=== PATIENT | male | born 1945 | race Caucasian/White ===

== ENCOUNTER → 2021-01-05 | Day surgery (SDC) | payer MEDICARE ==
[2021-01-02 08:32] LABS: BASOPHILS # (AUTO) 0.1 (0.0-0.1); BASOPHILS % 0.9 % (0.0-1.0); EOSINOPHILS # (AUTO) 0.4 (0.0-0.4); EOSINOPHILS % 6.4 % (0.0-6.0); HEMATOCRIT 46.1 % (38.2-49.6); HEMOGLOBIN 14.5 g/dL (14.0-18.0); LYMPHOCYTES % 33.9 % (18.0-39.1); MEAN CORPUSCULAR HEMOGLOBIN 29.9 pg (28-32); MEAN CORPUSCULAR HGB CONC 31.5 g/dL (31-35); MEAN CORPUSCULAR VOLUME 95.1 fL (81-99); MONOCYTES # (AUTO) 0.7 (0.2-0.8); MONOCYTES % 12.6 % (4.4-11.3); NEUTROPHILS # (AUTO) 2.7 (2.1-6.9); PLATELET COUNT 154 x10e3/uL (140-360); RED BLOOD COUNT 4.85 x10e6/uL (4.3-5.7)
[2021-01-02 08:58] LABS: INR 0.96
[2021-01-02 09:12] LABS: ALBUMIN 3.8 g/dL (3.5-5.0); ANION GAP 12.5 mmol/L (8-16); CALCIUM 9.3 mg/dL (8.4-10.2); CREATININE, SERUM 1.06 mg/dL (0.72-1.25); POTASSIUM 4.5 mmol/L (3.5-5.1)
[2021-01-05] VITALS (10 sets, daily range): BP systolic 131–173; BP diastolic 76–82
[~2021-01-05] VITALS: Ht 177.8 cm; Wt 91.6 kg
[~2021-01-05] MED LIST: ATORVASTATIN CA20 MG PO; FENTANYL CITRATE/PF 100MCG/2 ML INJ ONE; HEPARIN SOD (PORCINE) 1000 UNIT/ML 30ML ONE; HEPARIN SOD/SOD CHLORIDE 2,000 ML ONE; IOPAMIDOL 370 MG/ML 200 ML INFUS..BTL INJ ONE; LASIX40 MG PO; LIDOCAINE HCL 2% LOCAL 20 ML VIAL ONE; MELOXICAM15 MG PO; MIDAZOLAM HCL 2 MG/2 ML VIAL ONE; NAPROXEN250 MG PO; NEURONTIN300 MG PO; NITROGLYCERIN/D5W 200 MCG/ML 0 ML ONE; SODIUM CHLORIDE 0.9% 1000ML 1,000 ML ONE
== END | disposition home or self-care (01) ==
LOC: CATH LAB 07:02
PROVIDERS: ATTEND Internal Medicine Cardiovascular Disease
DX: I25.810 Atherosclerosis of coronary artery bypass graft(s) without angina pectoris (principal); R94.39 Abnormal result of other cardiovascular function study; I71.4 Abdominal aortic aneurysm, without rupture; I10 Essential (primary) hypertension; E78.5 Hyperlipidemia, unspecified; I73.9 Peripheral vascular disease, unspecified; I87.2 Venous insufficiency (chronic) (peripheral); Z88.2 Allergy status to sulfonamides; Z88.8 Allergy status to other drugs, medicaments and biological substances; Z01.812 Encounter for preprocedural laboratory examination; Z20.822 Contact with and (suspected) exposure to COVID-19; Z95.1 Presence of aortocoronary bypass graft
CPT/HCPCS: 36415; 75605; 75625; 80053; 85025; 85610; 93459; C1760; C1766; C1769 ×4; C1894; J2001; J2250; J3010; J7030; Q9967; U0002; 99152; 99153; J1644

== ENCOUNTER 2021-02-13 05:24 | Observation (INO) | payer MEDICARE ==
[2021-02-10 10:07] LABS: BASOPHILS # (AUTO) 0.1 (0.0-0.1); BASOPHILS % 0.9 % (0.0-1.0); EOSINOPHILS # (AUTO) 0.4 (0.0-0.4); EOSINOPHILS % 5.7 % (0.0-6.0); HEMOGLOBIN 13.5 g/dL (14.0-18.0); LYMPHOCYTES # (AUTO) 2.2 (1.0-3.2); LYMPHOCYTES % 34.6 % (18.0-39.1); MEAN CORPUSCULAR HEMOGLOBIN 30.1 pg (28-32); MEAN CORPUSCULAR HGB CONC 32.1 g/dL (31-35); MEAN CORPUSCULAR VOLUME 93.5 fL (81-99); MONOCYTES # (AUTO) 0.8 (0.2-0.8); MONOCYTES % 12.4 % (4.4-11.3); NEUTROPHILS % 46.1 % (38.7-80.0); PLATELET COUNT 182 x10e3/uL (140-360); RED BLOOD COUNT 4.49 x10e6/uL (4.3-5.7); RED CELL DISTRIBUTION WIDTH 13.3 % (11.7-14.4)
[2021-02-10 10:26] LABS: ANION GAP 13.2 mmol/L (8-16); CALCIUM 9.4 mg/dL (8.4-10.2); CREATININE, SERUM 0.97 mg/dL (0.72-1.25); POTASSIUM 4.2 mmol/L (3.5-5.1)
[~2021-02-13 05:24] MED LIST changes: +ASPIRIN81 MG PO; +CLOPIDOGREL75 MG PO; +CRESTOR10 MG PO; -FENTANYL CITRATE/PF 100MCG/2 ML INJ ONE; -HEPARIN SOD (PORCINE) 1000 UNIT/ML 30ML ONE; -HEPARIN SOD/SOD CHLORIDE 2,000 ML ONE; -IOPAMIDOL 370 MG/ML 200 ML INFUS..BTL INJ ONE; -LIDOCAINE HCL 2% LOCAL 20 ML VIAL ONE; -MIDAZOLAM HCL 2 MG/2 ML VIAL ONE; -NITROGLYCERIN/D5W 200 MCG/ML 0 ML ONE; -SODIUM CHLORIDE 0.9% 1000ML 1,000 ML ONE
[2021-02-13] MEDS ORDERED: Vancomycin IV 1,000 MG ONE (06:20)
[2021-02-13] MEDS ORDERED: TRANEXAMIC ACID 1,000 MG/10 ML ML ONE (06:20)
[2021-02-13] MEDS ORDERED: CELECOXIB 200 MG CAP ONE (06:38)
[2021-02-13] MEDS ORDERED: DEXAMETHASONE SOD PHOS 10 MG/1 ML VIAL ONE (06:38)
[2021-02-13] MEDS ORDERED: GABAPENTIN 300 MG CAP ONE (06:39)
[2021-02-13] MEDS ORDERED: SODIUM CHLORIDE 0.9% 50ML 100 ML ONE (06:39)
[2021-02-13] MEDS ORDERED: ROPIVACAINE 246.25 MG, EPINEPHRINE HCL 1:1000 1ML 0.5 MG, CLONIDINE HCL 0.08 MG, KETORO... INJ ONE ×5 (08:00)
[2021-02-13] MEDS ORDERED: ONDANSETRON HCL INJ 2MG/ML 2ML 2 MG/ML VIAL IV PRN (08:30)
[2021-02-13] MEDS ORDERED: HYDROCODONE/APAP 5MG-325MG TAB PO PRN (08:30)
[2021-02-13] MEDS ORDERED: DIPHENHYDRAMINE HCL INJ 50 MG/ML VIAL IV PRN (08:30)
[2021-02-13] MEDS ORDERED: DOCUSATE SODIUM 100 MG CAP PO PRN (08:30)
[2021-02-13] MEDS ORDERED: HYDROCODONE/APAP 7.5MG-325MG 1 EA TAB PO PRN (08:30)
[2021-02-13] MEDS ORDERED: KETOROLAC TROMETHAMINE 30 MG/ML VIAL IV PRN (08:30)
[2021-02-13] MEDS ORDERED: ACETAMINOPHEN 650 MG SUPP PR PRN (08:30)
[2021-02-13] MEDS ORDERED: SODIUM CHLORIDE 0.9% 1000ML 1,000 ML IV SCH (08:30)
[2021-02-13] MEDS ORDERED: MEPERIDINE HCL INJ 25 MG/ML VIAL ONE (08:49)
[2021-02-13] MEDS ORDERED: HYDROMORPHONE 1MG/1ML INJ ONE (09:23)
[2021-02-13 10:15] VITALS: BP 138/71
[2021-02-13] MEDS: CELECOXIB 100 MG CAP PO SCH ×2 (10:42→16:27)
[2021-02-13] MEDS: ASPIRIN 325 MG TAB PO SCH ×2 (10:42→16:27)
[2021-02-13 11:12] VITALS: BP 138/71
[2021-02-13 11:26] VITALS: BP 138/71
[2021-02-13 11:52] VITALS: BP 139/77
[2021-02-13] MEDS ORDERED: ACETAMINOPHEN 1000 MG/100 ML IV PRN (12:00)
[2021-02-13] MEDS ORDERED: LIDOCAINE HCL 2% LOCAL INJ 5 ML SDV VIAL INJ ONE (12:52)
[2021-02-13] MEDS ORDERED: KETOROLAC TROMETHAMINE 30 MG/ML VIAL ONE (12:52)
[2021-02-13] MEDS ORDERED: SEVOFLURANE INHAL SOLN 250 ML PEN BTL ONE (12:52)
[2021-02-13] MEDS ORDERED: POVIDONE IODINE 0.05% 0.05 % ML PO ONE (12:52)
[2021-02-13] MEDS ORDERED: EPHEDRINE SULFATE INJ 50 MG/ML VIAL ONE (12:52)
[2021-02-13] MEDS ORDERED: DEXAMETHASONE SOD PHOS INJ 4 MG/ML SDV ONE (12:52)
[2021-02-13] MEDS ORDERED: ONDANSETRON HCL INJ 2MG/ML 2ML 2 MG/ML VIAL ONE (12:52)
[2021-02-13] MEDS ORDERED: PROPOFOL IV EMULSION 10 MG/ML 20 ML VIAL ONE (12:52)
[2021-02-13] MEDS ORDERED: Cefazolin 1 GM in SODIUM CHLORIDE 0.9% 50ML 50 ML IV SCH (14:00)
[2021-02-13 16:04] VITALS: BP 139/70
[2021-02-13] MEDS ORDERED: ZOLPIDEM TARTRATE 5 MG TAB PO PRN (21:00)
== END 2021-02-13 18:17 | disposition home or self-care (01) ==
LOC: OR 05:24 → PACU V 08:34 → MED/SURG2 10:00
PROVIDERS: ADMIT Specialist; ATTEND Specialist
DX: M17.0 Bilateral primary osteoarthritis of knee (principal); Z20.822 Contact with and (suspected) exposure to COVID-19; I10 Essential (primary) hypertension; I25.10 Atherosclerotic heart disease of native coronary artery without angina pectoris; Z95.1 Presence of aortocoronary bypass graft; I73.9 Peripheral vascular disease, unspecified; I87.2 Venous insufficiency (chronic) (peripheral); R94.30 Abnormal result of cardiovascular function study, unspecified
CPT/HCPCS: 27447; 36415; 71046; 73560; 80048; 85025; 86850; 86900; 86920; 97110; 97116; 97161; C1713; G0378; J0171; J0690; J1100 ×2; J1170; J1885; J2001; J2175; J2405; J2704; J2795; J3370; J7030; U0002; C1776

== ENCOUNTER 2021-09-04 05:31 | Observation (INO) | payer MEDICARE ==
[2021-09-01 10:29] LABS: BASOPHILS % 0.4 % (0.0-1.0); EOSINOPHILS # (AUTO) 0.2 (0.0-0.4); EOSINOPHILS % 2.8 % (0.0-6.0); HEMATOCRIT 45.8 % (38.2-49.6); HEMOGLOBIN 14.7 g/dL (14.0-18.0); LYMPHOCYTES % 27.4 % (18.0-39.1); MEAN CORPUSCULAR HEMOGLOBIN 30.2 pg (28-32); MEAN CORPUSCULAR HGB CONC 32.1 g/dL (31-35); MONOCYTES # (AUTO) 0.7 (0.2-0.8); NEUTROPHILS # (AUTO) 4.2 (2.1-6.9); NEUTROPHILS % 59.3 % (38.7-80.0); PLATELET COUNT 174 x10e3/uL (140-360); RED BLOOD COUNT 4.87 x10e6/uL (4.3-5.7); RED CELL DISTRIBUTION WIDTH 13.6 % (11.7-14.4)
[2021-09-01 10:44] LABS: CALCIUM 10.2 mg/dL (8.4-10.2); CREATININE, SERUM 0.96 mg/dL (0.72-1.25)
[2021-09-04] VITALS (9 sets, daily range): BP systolic 125–158; BP diastolic 60–86
[~2021-09-04] VITALS: Ht 177.8 cm; Wt 92.1 kg
[2021-09-04] MEDS ORDERED: Vancomycin IV 1,000 MG ONE (06:17)
[2021-09-04] MEDS ORDERED: TRANEXAMIC ACID 20 ML ONE (06:17)
[2021-09-04] MEDS ORDERED: VITAMIN D PO (06:19)
[2021-09-04] MEDS ORDERED: LISINOPRIL-HCT1 EACH PO (06:19)
[2021-09-04] MEDS ORDERED: FRUIT & VEGETA1 EACH PO (06:19)
[2021-09-04] MEDS ORDERED: PREVAGEN PO (06:19)
[2021-09-04] MEDS ORDERED: [UNRECOGNIZED DRUG - REMARK] PO (06:19)
[2021-09-04] MEDS ORDERED: [UNRECOGNIZED DRUG - REMARK] PO (06:19)
[2021-09-04] MEDS ORDERED: SODIUM CHLORIDE 0.9% 50ML 100 ML ONE (06:51)
[2021-09-04] MEDS ORDERED: GABAPENTIN 300 MG CAP ONE (06:51)
[2021-09-04] MEDS ORDERED: CELECOXIB 200 MG CAP ONE (06:51)
[2021-09-04] MEDS ORDERED: DEXAMETHASONE SOD PHOS 10 MG/1 ML VIAL ONE (06:51)
[2021-09-04] MEDS ORDERED: ROPIVACAINE 246.25 MG, EPINEPHRINE HCL 1:1000 1ML 0.5 MG, CLONIDINE HCL 0.08 MG, KETORO... INJ ONE ×5 (07:30)
[2021-09-04] MEDS ORDERED: ONDANSETRON HCL INJ 2MG/ML 2ML 2 MG/ML VIAL IV PRN (08:30)
[2021-09-04] MEDS ORDERED: DOCUSATE SODIUM 100 MG CAP PO PRN (08:30)
[2021-09-04] MEDS ORDERED: DIPHENHYDRAMINE HCL INJ 50 MG/ML VIAL IV PRN (08:30)
[2021-09-04] MEDS ORDERED: ACETAMINOPHEN 650 MG SUPP PR PRN (08:30)
[2021-09-04] MEDS: SODIUM CHLORIDE 0.9% 1000ML 1,000 ML IV SCH ×2 (08:30→14:55)
[2021-09-04] MEDS ORDERED: KETOROLAC TROMETHAMINE 30 MG/ML VIAL IV PRN (08:30)
[2021-09-04] MEDS ORDERED: HYDROCODONE/APAP 5MG-325MG TAB PO PRN (08:30)
[2021-09-04] MEDS ORDERED: HYDROCODONE/APAP 7.5MG-325MG 1 EA TAB PO PRN (08:30)
[2021-09-04] MEDS ORDERED: MEPERIDINE HCL INJ 25 MG/ML VIAL ONE (08:49)
[2021-09-04] MEDS: ASPIRIN 325 MG TAB PO SCH ×2 (09:00→16:42)
[2021-09-04] MEDS ORDERED: FENTANYL CITRATE/PF 100MCG/2 ML INJ ONE (09:00)
[2021-09-04] MEDS: CELECOXIB 100 MG CAP PO SCH ×2 (09:00→16:42)
[2021-09-04] MEDS ORDERED: ACETAMINOPHEN 1000 MG/100 ML IV PRN (12:00)
[2021-09-04] MEDS ORDERED: ACETAMINOPHEN 1000 MG/100 ML IV ONE (13:18)
[2021-09-04] MEDS ORDERED: ONDANSETRON HCL INJ 2MG/ML 2ML 2 MG/ML VIAL ONE (13:18)
[2021-09-04] MEDS ORDERED: LIDOCAINE HCL 2% LOCAL INJ 5 ML SDV VIAL INJ ONE (13:18)
[2021-09-04] MEDS ORDERED: SEVOFLURANE INHAL SOLN 250 ML PEN BTL ONE (13:18)
[2021-09-04] MEDS ORDERED: PROPOFOL IV EMULSION 10 MG/ML 20 ML VIAL ONE (13:18)
[2021-09-04] MEDS ORDERED: POVIDONE IODINE 0.05% 0.05 % ML PO ONE (13:18)
[2021-09-04] MEDS ORDERED: Cefazolin 1 GM in SODIUM CHLORIDE 0.9% 50ML 50 ML IV SCH (14:00)
[2021-09-04] MEDS ORDERED: ONDANSETRON HCL 4 MG ORAL DISINTEGRATING TAB PO PRN (18:15)
[2021-09-04] MEDS ORDERED: ZOLPIDEM TARTRATE 5 MG TAB PO PRN (21:00)
== END 2021-09-04 19:27 | disposition home or self-care (01) ==
LOC: OR 05:31 → PACU V 08:23 → MED/SURG 09:44
PROVIDERS: ADMIT Specialist; ATTEND Specialist
DX: M17.0 Bilateral primary osteoarthritis of knee (principal); Z20.822 Contact with and (suspected) exposure to COVID-19; I10 Essential (primary) hypertension; Z96.651 Presence of right artificial knee joint; Z88.1 Allergy status to other antibiotic agents; Z88.2 Allergy status to sulfonamides; Z01.818 Encounter for other preprocedural examination; I25.10 Atherosclerotic heart disease of native coronary artery without angina pectoris
CPT/HCPCS: 27447; 36415; 71046; 73560; 80048; 85025; 86850; 86900; 86920; 93005; 94799; 97116; 97161; 97530; C1713 ×2; C1776; G0378; J0171; J0690; J1100; J1885; J2175; J2795; J3010; J3370; J7030; U0002; J2001; J2405

== ENCOUNTER → 2022-10-24 | Outpatient (CLI) | payer MEDICARE ==
[~2022-10-24] MED LIST changes: +FRUIT & VEGETA1 EACH PO; +LISINOPRIL-HCT1 EACH PO; +PREVAGEN PO; +VITAMIN D PO; +[UNRECOGNIZED DRUG - REMARK] PO; +[UNRECOGNIZED DRUG - REMARK] PO
== END ==
LOC: US 07:14
PROVIDERS: ATTEND Internal Medicine Cardiovascular Disease
DX: I25.10 Atherosclerotic heart disease of native coronary artery without angina pectoris (principal)
CPT/HCPCS: 76770

== ENCOUNTER → 2024-01-13 | Outpatient (REF) | payer MEDICARE | LOC: US 07:16 | PROVIDERS: ATTEND Internal Medicine | DX: R10.11 Right upper quadrant pain (principal) | CPT/HCPCS: 76705 ==

== ENCOUNTER 2024-06-12 19:31 | Emergency (ER) | payer MEDICARE ==
[~2024-06-12] VITALS: Ht 177.8 cm; Wt 95.7 kg
[2024-06-12 19:42] VITALS: TEMP 98.7
[2024-06-12 19:54] LABS: BASOPHILS % 0.3 % (0.0-1.0); EOSINOPHILS # (AUTO) 0.2 (0.0-0.4); EOSINOPHILS % 4.1 % (0.0-6.0); HEMATOCRIT 44.3 % (38.2-49.6); HEMOGLOBIN 13.9 g/dL (14.0-18.0); LYMPHOCYTES # (AUTO) 1.9 (1.0-3.2); LYMPHOCYTES % 32.9 % (18.0-39.1); MEAN CORPUSCULAR HEMOGLOBIN 31.7 pg (28-32); MEAN CORPUSCULAR HGB CONC 31.4 g/dL (31-35); MEAN CORPUSCULAR VOLUME 100.9 fL (81-99); MONOCYTES # (AUTO) 0.7 (0.2-0.8); MONOCYTES % 11.2 % (4.4-11.3); NEUTROPHILS % 51.3 % (38.7-80.0); PLATELET COUNT 149 x10e3/uL (140-360); RED BLOOD COUNT 4.39 x10e6/uL (4.3-5.7); RED CELL DISTRIBUTION WIDTH 12.7 % (11.7-14.4)
[2024-06-12] MEDS: SODIUM CHLORIDE 0.9% 1000ML 1,000 ML IV STA (20:07)
[2024-06-12 20:17] LABS: ALBUMIN 3.9 g/dL (3.5-5.0); ALBUMIN/GLOBULIN RATIO 1.1 (0.8-2.0); BILIRUBIN,TOTAL 0.6 mg/dL (0.2-1.2); CALCIUM 9.3 mg/dL (8.4-10.2); CREATININE, SERUM 1.06 mg/dL (0.72-1.25); TOTAL PROTEIN 7.5 g/dL (6.5-8.1)
[2024-06-12 20:24] LABS: TROPONIN I 0.003 ng/mL (0-0.300)
[2024-06-12 21:13] VITALS: PULSE 88; RESP 20; O2SAT 99
== END 2024-06-12 21:20 | disposition home or self-care (01) ==
LOC: ER 19:40
DX: I16.0 Hypertensive urgency (principal); R07.89 Other chest pain; I10 Essential (primary) hypertension; E78.5 Hyperlipidemia, unspecified; Z95.1 Presence of aortocoronary bypass graft
CPT/HCPCS: 36415; 70450; 71045; 80053; 82550; 83690; 83880; 84484; 85025; 93005; 99284; J7030

== ENCOUNTER → 2024-08-06 | Outpatient (REF) | payer MEDICARE ==
[~2024-08-06] MED LIST changes: +B-121000 MC2; +CALCIUM ACETAT667 MG PO; +FINASTERIDE5 MG PO; +FLOMAX0.4 MG PO; +ISOSORBIDE MONO30 MG PO; +LASIX10 MG/ML PO; +LOSARTAN POTASS25 MG PO; +MAGNESIUM100 MG; +MELATONIN3 MG PO; +NEURONTIN100 MG PO; +PANTOPRAZOLE SO40 MG PO; +VESICARE5 MG PO; +VITAMIN D31250 MCG; +[UNRECOGNIZED DRUG - OTHER] PO
== END ==
LOC: MRI 08:10
PROVIDERS: ATTEND Internal Medicine
DX: M54.12 Radiculopathy, cervical region (principal); M54.16 Radiculopathy, lumbar region; M51.360 Other intervertebral disc degeneration, lumbar region with discogenic back pain only; M50.30 Other cervical disc degeneration, unspecified cervical region
CPT/HCPCS: 72148

== ENCOUNTER → 2024-08-21 | Outpatient (REF) | payer MEDICARE | LOC: CT 08:52 | PROVIDERS: ATTEND Internal Medicine | DX: M50.90 Cervical disc disorder, unspecified, unspecified cervical region (principal); M54.12 Radiculopathy, cervical region | CPT/HCPCS: 72125 ==

== ENCOUNTER → 2024-09-16 | Day surgery (SDC) | payer MEDICARE ==
[2024-09-08 08:18] LABS: BASOPHILS % 0.5 % (0.0-1.0); EOSINOPHILS # (AUTO) 0.3 (0.0-0.4); EOSINOPHILS % 4.1 % (0.0-6.0); HEMATOCRIT 41.4 % (38.2-49.6); HEMOGLOBIN 13.8 g/dL (14.0-18.0); LYMPHOCYTES # (AUTO) 1.7 (1.0-3.2); LYMPHOCYTES % 26.1 % (18.0-39.1); MEAN CORPUSCULAR HEMOGLOBIN 31.6 pg (28-32); MEAN CORPUSCULAR HGB CONC 33.3 g/dL (31-35); MEAN CORPUSCULAR VOLUME 94.7 fL (81-99); MONOCYTES # (AUTO) 0.7 (0.2-0.8); NEUTROPHILS # (AUTO) 3.9 (2.1-6.9); NEUTROPHILS % 59.1 % (38.7-80.0); PLATELET COUNT 161 x10e3/uL (140-360); RED BLOOD COUNT 4.37 x10e6/uL (4.3-5.7); WHITE BLOOD COUNT 6.59 x10e3/uL (4.8-10.8)
[~2024-09-16] MED LIST changes: +ASHWAGANDHA62.5 MG; +FENTANYL CITRATE/PF 100MCG/2 ML INJ ONE; +LIDOCAINE HCL 2% LOCAL INJ 5 ML SDV VIAL INJ ONE; +MIDAZOLAM HCL 2 MG/2 ML VIAL ONE; +PROPOFOL IV EMULSION 10 MG/ML 20 ML VIAL ONE
[2024-09-16] MEDS: LACTATED RINGER'S 1,000 ML ONE (07:00)
[2024-09-16 09:40] VITALS: BP 153/84; PULSE 81; RESP 16; O2SAT 96
== END | disposition home or self-care (01) ==
LOC: ENDO 06:31
PROVIDERS: ATTEND Internal Medicine Gastroenterology
DX: K22.2 Esophageal obstruction (principal); K31.7 Polyp of stomach and duodenum; K29.70 Gastritis, unspecified, without bleeding; K20.90 Esophagitis, unspecified without bleeding; K44.9 Diaphragmatic hernia without obstruction or gangrene; K21.9 Gastro-esophageal reflux disease without esophagitis; K76.0 Fatty (change of) liver, not elsewhere classified; I10 Essential (primary) hypertension; N40.0 Benign prostatic hyperplasia without lower urinary tract symptoms; I25.810 Atherosclerosis of coronary artery bypass graft(s) without angina pectoris; I44.0 Atrioventricular block, first degree; I72.8 Aneurysm of other specified arteries; Z88.2 Allergy status to sulfonamides; Z88.8 Allergy status to other drugs, medicaments and biological substances; Z91.048 Other nonmedicinal substance allergy status; Z01.812 Encounter for preprocedural laboratory examination; Z79.82 Long term (current) use of aspirin; Z79.899 Other long term (current) drug therapy; Z86.73 Personal history of transient ischemic attack (TIA), and cerebral infarction without residual deficits; Z95.1 Presence of aortocoronary bypass graft; Z95.5 Presence of coronary angioplasty implant and graft
CPT/HCPCS: 36415; 43239; 43251; 43450; 85025; J2003; J2250; J2470; J2704; J3010; J7121

== ENCOUNTER 2024-11-11 06:54 | Inpatient (IN) | payer MEDICARE ==
[2024-11-10 08:19] LABS: BASOPHILS % 0.7 % (0.0-1.0); EOSINOPHILS # (AUTO) 0.3 (0.0-0.4); EOSINOPHILS % 5.1 % (0.0-6.0); HEMATOCRIT 39.3 % (38.2-49.6); HEMOGLOBIN 12.9 g/dL (14.0-18.0); LYMPHOCYTES # (AUTO) 1.8 (1.0-3.2); LYMPHOCYTES % 31.3 % (18.0-39.1); MEAN CORPUSCULAR HEMOGLOBIN 31.4 pg (28-32); MEAN CORPUSCULAR HGB CONC 32.8 g/dL (31-35); MEAN CORPUSCULAR VOLUME 95.6 fL (81-99); MONOCYTES # (AUTO) 0.7 (0.2-0.8); MONOCYTES % 11.2 % (4.4-11.3); NEUTROPHILS % 51.7 % (38.7-80.0); PLATELET COUNT 140 x10e3/uL (140-360); RED BLOOD COUNT 4.11 x10e6/uL (4.3-5.7); WHITE BLOOD COUNT 5.88 x10e3/uL (4.8-10.8)
[2024-11-10 08:49] LABS: ANION GAP 13.9 mmol/L (8-16); CALCIUM 8.8 mg/dL (8.4-10.2); CREATININE, SERUM 1.15 mg/dL (0.72-1.25); POTASSIUM 3.9 mmol/L (3.5-5.1)
[~2024-11-11 06:54] MED LIST changes: -FENTANYL CITRATE/PF 100MCG/2 ML INJ ONE; -LIDOCAINE HCL 2% LOCAL INJ 5 ML SDV VIAL INJ ONE; +METOPROLOL SUCC25 MG PO; -MIDAZOLAM HCL 2 MG/2 ML VIAL ONE; -PROPOFOL IV EMULSION 10 MG/ML 20 ML VIAL ONE
[2024-11-11] MEDS: CEFTRIAXONE 1 GM VIAL ONE (07:38)
[2024-11-11] MEDS: SODIUM CHLORIDE 0.9% 1000ML 1,000 ML ONE (07:39)
[2024-11-11] MEDS: GENTAMICIN 80MG/NS 100 ML 200 ML IV ONE (07:39)
[2024-11-11] MEDS ORDERED: SEVOFLURANE INHAL SOLN 250 ML PEN BTL ONE (07:53)
[2024-11-11] MEDS ORDERED: PROPOFOL IV EMULSION 10 MG/ML 20 ML VIAL ONE (07:53)
[2024-11-11] MEDS ORDERED: ACETAMINOPHEN 1000 MG/100 ML 100 ML IV ONE (07:53)
[2024-11-11] MEDS ORDERED: FENTANYL CITRATE/PF 100MCG/2 ML INJ ONE (07:53)
[2024-11-11] MEDS ORDERED: EPHEDRINE SULFATE INJ 50 MG/ML VIAL ONE (09:48)
[2024-11-11] MEDS ORDERED: PHENAZOPYRIDINE HCL 100 MG TAB PO PRN (10:45)
[2024-11-11] MEDS ORDERED: DIPHENHYDRAMINE HCL 25 MG CAP PO PRN (10:45)
[2024-11-11] MEDS ORDERED: ACETAMINOPHEN 1000 MG/100 ML IV PRN (10:45)
[2024-11-11] MEDS ORDERED: ONDANSETRON HCL INJ 2MG/ML 2ML 2 MG/ML VIAL IV PRN (10:45)
[2024-11-11 11:03] LABS: BASOPHILS % 0.6 % (0.0-1.0); EOSINOPHILS # (AUTO) 0.2 (0.0-0.4); EOSINOPHILS % 2.9 % (0.0-6.0); HEMATOCRIT 41.4 % (38.2-49.6); HEMOGLOBIN 13.6 g/dL (14.0-18.0); LYMPHOCYTES # (AUTO) 1.4 (1.0-3.2); LYMPHOCYTES % 26.4 % (18.0-39.1); MEAN CORPUSCULAR HEMOGLOBIN 31.2 pg (28-32); MEAN CORPUSCULAR HGB CONC 32.9 g/dL (31-35); MONOCYTES # (AUTO) 0.4 (0.2-0.8); MONOCYTES % 7.6 % (4.4-11.3); NEUTROPHILS # (AUTO) 3.3 (2.1-6.9); NEUTROPHILS % 62.3 % (38.7-80.0); PLATELET COUNT 129 x10e3/uL (140-360); RED BLOOD COUNT 4.36 x10e6/uL (4.3-5.7); RED CELL DISTRIBUTION WIDTH 12.8 % (11.7-14.4); WHITE BLOOD COUNT 5.23 x10e3/uL (4.8-10.8)
[2024-11-11 11:25] LABS: ANION GAP 13.2 mmol/L (8-16); CALCIUM 8.3 mg/dL (8.4-10.2); CREATININE, SERUM 1.02 mg/dL (0.72-1.25); POTASSIUM 4.2 mmol/L (3.5-5.1)
[2024-11-11 11:42] VITALS: BP 147/64; PULSE 83; RESP 14; TEMP 97.2; O2SAT 97
[2024-11-11 11:45] VITALS: PULSE 88; RESP 18; O2SAT 96
[2024-11-11] MEDS: SODIUM CHLORIDE 0.9% 1000ML 1,000 ML IV SCH (12:54)
[2024-11-11 16:32] VITALS: BP 178/84; PULSE 93; RESP 19; TEMP 97.6; O2SAT 98
[2024-11-11] MEDS: SENNA-S TABLET PO SCH (17:01)
[2024-11-11 20:00] VITALS: BP 185/91; PULSE 101; RESP 18; TEMP 97.6; O2SAT 99
[2024-11-11 20:15] VITALS: PULSE 86; RESP 18; O2SAT 96
[2024-11-11] MEDS: ACETAMINOPHEN/CODEINE 300MG - 30MG TAB PO PRN (22:05)
[2024-11-11] MEDS: ISOSORBIDE MONONITRATE 30 MG TAB CR PO SCH (23:54)
[2024-11-11] MEDS: LOSARTAN POTASSIUM 25 MG TAB PO SCH (23:55)
[2024-11-11] MEDS: METOPROLOL SUCCINATE 25 MG TAB XL PO SCH (23:55)
[2024-11-12] VITALS (10 sets, daily range): BP systolic 116–182; BP diastolic 65–116; PULSE 61–94; RESP 17–20; TEMP 97.9–98.4; O2SAT 94–100
[2024-11-12 05:21] LABS: BASOPHILS % 0.1 % (0.0-1.0); HEMATOCRIT 40.3 % (38.2-49.6); HEMOGLOBIN 13.1 g/dL (14.0-18.0); LYMPHOCYTES % 14.6 % (18.0-39.1); MEAN CORPUSCULAR HEMOGLOBIN 31.1 pg (28-32); MEAN CORPUSCULAR HGB CONC 32.5 g/dL (31-35); MEAN CORPUSCULAR VOLUME 95.7 fL (81-99); MONOCYTES # (AUTO) 0.5 (0.2-0.8); MONOCYTES % 6.3 % (4.4-11.3); NEUTROPHILS # (AUTO) 5.6 (2.1-6.9); NEUTROPHILS % 78.9 % (38.7-80.0); PLATELET COUNT 152 x10e3/uL (140-360); RED BLOOD COUNT 4.21 x10e6/uL (4.3-5.7); RED CELL DISTRIBUTION WIDTH 12.7 % (11.7-14.4)
[2024-11-12 05:54] LABS: ANION GAP 14.1 mmol/L (8-16); CALCIUM 8.7 mg/dL (8.4-10.2); CREATININE, SERUM 0.83 mg/dL (0.72-1.25); POTASSIUM 4.1 mmol/L (3.5-5.1)
[2024-11-12] MEDS ORDERED: HYDRALAZINE HCL 25 MG TAB PO PRN (09:00)
[2024-11-13] VITALS (10 sets, daily range): BP systolic 141–172; BP diastolic 65–89; PULSE 62–78; RESP 18; TEMP 97.6–98.4; O2SAT 96–100
[2024-11-13 05:24] LABS: BASOPHILS # (AUTO) 0.1 (0.0-0.1); BASOPHILS % 0.7 % (0.0-1.0); EOSINOPHILS # (AUTO) 0.3 (0.0-0.4); EOSINOPHILS % 4.1 % (0.0-6.0); HEMATOCRIT 36.9 % (38.2-49.6); HEMOGLOBIN 11.9 g/dL (14.0-18.0); LYMPHOCYTES # (AUTO) 2.7 (1.0-3.2); LYMPHOCYTES % 35.2 % (18.0-39.1); MEAN CORPUSCULAR HEMOGLOBIN 31.2 pg (28-32); MEAN CORPUSCULAR HGB CONC 32.2 g/dL (31-35); MEAN CORPUSCULAR VOLUME 96.6 fL (81-99); MONOCYTES # (AUTO) 0.8 (0.2-0.8); MONOCYTES % 10.3 % (4.4-11.3); NEUTROPHILS # (AUTO) 3.8 (2.1-6.9); NEUTROPHILS % 49.4 % (38.7-80.0); PLATELET COUNT 134 x10e3/uL (140-360); RED BLOOD COUNT 3.82 x10e6/uL (4.3-5.7); RED CELL DISTRIBUTION WIDTH 13.2 % (11.7-14.4); WHITE BLOOD COUNT 7.58 x10e3/uL (4.8-10.8)
[2024-11-13 05:55] LABS: ANION GAP 12.8 mmol/L (8-16); CALCIUM 8.7 mg/dL (8.4-10.2); CREATININE, SERUM 0.88 mg/dL (0.72-1.25); POTASSIUM 3.8 mmol/L (3.5-5.1)
[2024-11-13] MEDS ORDERED: BISACODYL 10 MG SUPP PR PRN (09:00)
[2024-11-13] MEDS ORDERED: MAGNESIUM HYDROXIDE 30 ML UDC PO PRN (09:00)
[2024-11-13] MEDS: POLYETHYLENE GLYCOL 3350 17 GM PACK PO SCH (09:38)
[2024-11-13] MEDS: MAGNESIUM HYDROXIDE 30 ML UDC PO ONE (09:38)
[2024-11-13] MEDS: LOSARTAN POTASSIUM 100 MG TAB PO SCH (09:39)
[2024-11-13] MEDS: BISACODYL 10 MG SUPP PR ONE (09:39)
[2024-11-13] MEDS: BISACODYL 5 MG TAB EC PO ONE (09:40)
[2024-11-13] MEDS: PANTOPRAZOLE SOD 40 MG TABEC PO SCH (09:41)
[2024-11-13] MEDS ORDERED: LEVOFLOXACIN250 MG PO (17:00)
[2024-11-14] MEDS ORDERED: BISACODYL 5 MG TAB EC PO SCH (17:00)
== END 2024-11-13 17:40 | disposition home or self-care (01) | DRG 713 ==
LOC: OR 06:54 → PACU V 10:44 → MED/SURG 11:32
PROVIDERS: ADMIT Internal Medicine; ATTEND Internal Medicine
PROC: 0T9B70Z Drainage of Bladder with Drainage Device, Via Natural or Artificial Opening (ICD-10-PCS; 2024-11-11)
PROC: 0DJD7ZZ Inspection of Lower Intestinal Tract, Via Natural or Artificial Opening (ICD-10-PCS; 2024-11-11)
PROC: BT141ZZ Fluoroscopy of Kidneys, Ureters and Bladder using Low Osmolar Contrast (ICD-10-PCS; 2024-11-11)
PROC: 0VB08ZZ Excision of Prostate, Via Natural or Artificial Opening Endoscopic (ICD-10-PCS; principal; 2024-11-11 09:35)
PROC: 0T7D8ZZ Dilation of Urethra, Via Natural or Artificial Opening Endoscopic (ICD-10-PCS; 2024-11-11 09:35)
DX: N40.1 Benign prostatic hyperplasia with lower urinary tract symptoms (principal); N13.8 Other obstructive and reflux uropathy; K59.09 Other constipation; R31.0 Gross hematuria; I10 Essential (primary) hypertension; E78.5 Hyperlipidemia, unspecified; N35.912 Unspecified bulbous urethral stricture, male; Z88.2 Allergy status to sulfonamides; E66.9 Obesity, unspecified; Z68.28 Body mass index [BMI] 28.0-28.9, adult
CPT/HCPCS: 36415; 71046; 74420; 80048; 83735; 85025; 88305; 93005; 94799; 99252; C1758; J0696; J1580; J2470; J7030